=== PATIENT | male | born 1995 | race Caucasian/White ===

== ENCOUNTER 2020-11-05 23:02 | Emergency (ER) | payer BC, OTHER ==
[~2020-11-05] VITALS: Ht 172.7 cm; Wt 91.9 kg
[2020-11-05 23:17] VITALS: BP 146/76
[2020-11-06] MEDS ORDERED: LIDOCAINE-MPF 1%, 5ML ONE
[2020-11-06] MEDS ORDERED: LIDOCAINE-MPF 1%, 5ML INFIL STA (00:01)
== END 2020-11-06 00:32 | disposition home or self-care (01) ==
LOC: ED 23:32
DX: S61.212A Laceration without foreign body of right middle finger without damage to nail, initial encounter (principal); W26.0XXA Contact with knife, initial encounter; Y93.89 Activity, other specified; Y92.009 Unspecified place in unspecified non-institutional (private) residence as the place of occurrence of the external cause; Y99.8 Other external cause status
CPT/HCPCS: 12041; 99284

== ENCOUNTER 2020-12-04 19:51 | Emergency (ER) | payer BC, OTHER ==
[~2020-12-04] VITALS: Ht 172.7 cm; Wt 87.7 kg
[2020-12-04 19:56] VITALS: BP 142/78
[2020-12-04] MEDS ORDERED: LIDOCAINE-MPF 1%, 5ML ONE (20:29)
[2020-12-04] MEDS ORDERED: LIDOCAINE-MPF 1%, 5ML INFIL ONE (21:00)
[2020-12-04] MEDS ORDERED: NEOSPORIN OINT. PKT 1 PACKET ONE (21:44)
== END 2020-12-04 21:54 | disposition home or self-care (01) ==
LOC: ED 21:33
DX: S61.211A Laceration without foreign body of left index finger without damage to nail, initial encounter (principal); F17.210 Nicotine dependence, cigarettes, uncomplicated; X58.XXXA Exposure to other specified factors, initial encounter; Y93.89 Activity, other specified; Y92.009 Unspecified place in unspecified non-institutional (private) residence as the place of occurrence of the external cause; Y99.8 Other external cause status
CPT/HCPCS: 12041; 99284